=== PATIENT | male | born 1980 | race Caucasian/White ===

== ENCOUNTER → 2024-02-03 15:49 | Outpatient (REF) | payer OTHER, SELFPAY | LOC: HWRCS 15:49 | PROVIDERS: ATTENDING PHYSICIAN Student in an Organized Health Care Education/Training Program; FAMILY PHYSICIAN Nurse Practitioner Family | DX: I72.3 Aneurysm of iliac artery (principal); I48.0 Paroxysmal atrial fibrillation; R07.89 Other chest pain | CPT/HCPCS: 93306 ==

== ENCOUNTER 2024-06-03 05:59 | Day surgery (SDC) | payer OTHER, SELFPAY ==
--- NOTE | 2024-05-28 11:24 | HPS.HSE ---
Family Physician
-
Family Physician: INTERVIEWE UNKNOWN - PT NOT
Chief Complaint
-
Persistent atrial fibrillation.
History of Present Illness
The patient is a 44-year-old male presenting today for persistent atrial fibrillation. He was initially diagnosed with paroxysmal atrial fibrillation in 2019 and spontaneously came out of atrial fibrillation into normal sinus rhythm.
Unfortunately, he has had persistent atrial fibrillation since December 2023 with associated symptoms of worsening fatigue, lightheadedness, decreased exercise tolerance, diaphoresis, and dyspnea with exertion. He is not on current pharmacological
therapy. His CHADS-VASc score is 1 (vascular disease); however, he is agreeable to short term anticoagulation therapy with Eliquis given the severity of his symptoms. He notes that his atrial fibrillation symptoms greatly interfere with his
activities of daily living and are overall impacting his quality of life. He is interested in pursuing pulsed field atrial fibrillation ablation for further arrhythmia management. He denies any current complaints today such as chest pain and
shortness of breath at rest, palpitations, nausea, vomiting, diarrhea, dizziness, cough, sore throat, or fever.
Medical History
Past Medical History
Past Medical History: Reports Other
Additional Past Medical History:
1. Persistent atrial fibrillation, oral anticoagulation with Eliquis.
2. PACs and PVCs.
3. Hyperlipidemia.
4. Left iliac artery aneurysm, 1.8 cm.
5. GERD.
6. Diverticulitis 2019.
7. Hepatic steatosis.
8. Migraines.
9. Obesity, BMI 30.3.
Past Surgical History: Reports Other (Left shoulder rotator cuff repair, subacromial decompression. )
Social History
Tobacco: Non-smoker
Alcohol: None
Living: Alone (in a 2 story home. He reports he will be staying at his girlfriend's house post-ablation. )
Family History
Family History: Not pertinent
Allergies / Home Medications
Allergy/Medication List:
Home medications: Eliquis 5 mg p.o. twice a day.
Allergies: Augmentin.
Review of Systems
-
A 12 point ROS was completed and negative except as noted: Yes
Physical Exam
Vital Signs
Blood pressure 123/75. Heart rate 85. Respirations 18. Pulse ox 97% on room air.
Height 5 feet, 10 inches. Weight 95.8 kg. BMI 30.3.
Physical Exam
General: Well Developed, Well Nourished and No Apparent Distress
HEENT: NormoCephalic, Moist mucous membranes, Atraumatic and PERRLA
Respiratory: Clear
Cardiac: Irregular Rhythm
GI: Soft, Non Tender, Non Distended and Other (Obese. )
Musculoskeletal: Normal Gait & Station
Skin: Warm and Dry
Neuro: AO x 3 and Nonfocal/grossly intact
Laboratory Results
-
DIAGNOSTIC STUDIES as of 05/28/2024: White blood cell count 8.3. Hemoglobin 18.2. Platelet count 263,000. Sodium 142. Potassium 4.3. BUN 17. Creatinine 0.9. Glucose 119. Calcium 9.4. AST 31.ALT 29. Albumin 4.5. Type and screen A positive.
EKG 05/28/2024: Atrial fibrillation with rapid ventricular response.
Echocardiogram 02/03/2024: Normal left ventricular size, wall thickness, and systolic function. No regional wall motion abnormalities are seen. Left ventricular ejection fraction is 55-60% by Quintanilla's method of discs. Normal diastolic function.
Normal right ventricular size and function. Normal atria. No significant valve abnormalities.No evidence of pulmonary hypertension. No significant change since the prior study of 04/07/2020.
Impression/Plan
-
IMPRESSION/PLAN:
1. Persistent atrial fibrillation: The patient is in need of a pulsed field atrial fibrillation ablation with Dr. Anant Deleon on 06/03/2024. The benefits and risks of the procedure have been explained to the patient. The patient understands these
risks and wishes to proceed. He is aware to continue his home Eliquis uninterrupted prior to his upcoming ablation.
[2024-05-28 13:30] VITALS: BMI 30.3
[2024-05-28 13:55] LABS: % Basophils 1.1 % (0-2); % Eosinophils 2.2 % (0-6); % Immature Granulocytes 0.4 % (0-0.5); % Lymphocytes 36.8 % (20.5-51.1); % Monocytes 6.2 % (1.7-9.3); % Neutrophils 53.3 % (42.2-75.2); Absolute Basophils 0.1 10^3/uL (0-0.2); Absolute Eosinophils 0.2 10^3/uL (0-0.7); Absolute Monocytes 0.5 10^3/uL (0.1-0.6); Absolute Neutrophils 4.4 10^3/uL (1.4-6.5); Hematocrit 51.8 % (39.0-52.0); Hemoglobin 18.2 g/dL (13.0-18.0); Mean Corp Hgb Conc. 35.1 g/dL (33.0-37.0); Mean Corpuscular Hgb 30.4 pg (27.0-31.0); Mean Corpuscular Volume 86.5 fL (80.0-94.0); Mean Platelet Volume 10.1 fL (7.4-10.4); Nucleated Red Blood Cells % 0 % (-); Platelet Count 263 10^3/uL (130-400); Red Blood Cell Count 5.99 10^6/uL (4.70-6.10); Red Cell Dist. Width 13.7 % (11.5-14.5); White Blood Cell Count 8.3 10^3/uL (4.8-10.8)
[2024-05-28 14:29] LABS: ALT (SGPT) 29 U/L (0-50); Albumin 4.5 g/dl (3.5-5.0); Alkaline Phosphatase 64 U/L (38-126); Blood Urea Nitrogen 17 mg/dl (9-20); Calcium 9.4 mg/dl (8.4-10.2); Carbon Dioxide 25 mmol/L (22-30); Chloride 106 mmol/L (98-107); Estimated Creatinine Clearance 119 ml/min; Glucose 119 mg/dl (70-99); Potassium 4.3 mmol/L (3.5-5.1); Sodium 142 mmol/L (135-145); Total Bilirubin 0.6 mg/dl (0.2-1.3); eGFR > 60.00
[2024-05-28 16:19] LABS: AST (SGOT) 31 U/L (17-59)
[2024-06-03] VITALS (9 sets, daily range): BP systolic 105–119; BP diastolic 72–91; BMI 29.8
[2024-06-03 08:45] LABS: ACT-LR - POC 345 Seconds (116-155)
[2024-06-03 09:20] LABS: ACT-LR - POC 332 Seconds (116-155)
--- NOTE | 2024-06-03 09:41 | ITS.CL.ABL ---
Premium Card Cancellation Clerk - Ablation
Ablation
Procedure Report:
AFIB ablation:
Mr. Tijerina is a very pleasant 44 yr old gentleman with symptomatic paroxysmal AF and atrial tachycardia presented today to the EP lab for atrial fibrillation/SVT ablation.
Date of the Procedure:
06/03/2024
Indications:
Paroxysmal atrial fibrillation
Pre-Operative Diagnosis:
Paroxysmal atrial fibrillation
Post-Operative Diagnosis:
Paroxysmal atrial fibrillation
Procedure Performed:
Atrial fibrillation ablation with Pulsed-Field approach for pulmonary vein isolation
Performing Physician:
Anant Deleon MD
Assistants:
EP staff
Anesthesia:
See anesthesia records
Detailed Description of the Procedure:
Written informed consent was obtained from the patient after a full explanation of the risks and benefits of the procedure including the risks of sedation and anesthesia.
The patient was brought to the electrophysiology laboratory in stable condition in fasting state. Continuous electrocardiographic and hemodynamic monitoring was initiated.
The initial rhythm was atrial fibrillation rhythm.
The procedure site was meticulously prepared with surgical scrub and allowed to dry with no pooling. Sterile draping was applied to cover the procedure site. The image intensifier was draped with sterile bag and positioned over the patient. After
infusion of local anesthetic, vascular access was obtained under ultrasound guidance and sheaths were placed over guide wire as detailed below.
The vascular ultrasound was stored in patient chart.
Sheath and Catheter Placement:
The following catheters / sheaths were placed
Sheaths:
15Fr steerable sheath (FlexCath Cross�, INTEX Programtronic) in right femoral vein in right femoral vein
9Fr in right femoral vein
7Fr in right femoral vein
Catheters:
Carto Pentaray mapping catheter � at locations of RA, LA
PulseSelect� PFA catheter
ICE catheter -AcuNav - at locations of RA, SVC, and RV.
Decapolar Bard catheter in RA and CS
Heparin was given after the access.
Intracardiac ECHO:
An 8-Bhutanese AcuNav intracardiac ECHO (ICE) probe was advanced through the 9-Bhutanese sheath in the right femoral vein into the right atrium under fluoroscopic and ICE ultrasound image guidance and a baseline ECHO study was performed. The left atrial
size was mildly dilated. There was moderate tricuspid regurgitation. The aortic valve was grossly normal. There was normal left ventricular systolic functions. There is no pericardial effusion. All the four veins were identified and has flow
identified.
During the procedure, ICE was used for monitoring of complications, guidance of trans-septal puncture, monitor the catheter position and tracking ablation lesions. No change in the pericardial space noted throughout the procedure.
Trans-septal Puncture:
Heparin was initiated and infused to maintain appropriate ACT. A J-tipped guidewire was advanced through the 8-Bhutanese sheath in the right femoral vein into the superior vena cava under fluoroscopic and ICE guidance. The 8-Bhutanese sheath was exchanged
for a FlexCath Cross sheath which was advanced into the superior vena cava. An AcZumbl transseptal access system was utilized to perform the trans-septal puncture. The apparatus was withdrawn until it was in contact with the fossa ovalis. The
position was adjusted based on fluoroscopy and ultrasound images from ICE. Under fluoroscopic, hemodynamic and ICE ultrasound guidance, left atrium was cannulated by advancing the needle. Once atrial septum was cannulated, the needle was pulled back
and a guide wire was advanced through the needle into the left atrium. The guide wire was advanced into the left superior pulmonary vein. Both the sheath and the dilator was advanced into the left atrium. The dilator with the needle was withdrawn.
Blood was aspirated from the FlexCath cross sheath and arterial blood confirmed. The sheath was flushed. Saline injection noted into the left atrium on ICE. The mapping catheter was advanced in the FlexCath sheath into the left pulmonary vein. Left
atrial pressure was measured.
3D Electroanatomic Mapping:
Using the Pentaray catheter advanced through sheath into the left atrium, an electroanatomic map (EAM) of the left atrium was created using Joosy mapping system. The map was used for localization of catheter position and tacking of
ablation lesions. The EAM of the left atrium showed 4 pulmonary veins with two left sided and two right sided veins electrically connected to the body the LA. The EAM showed no significant scar in the left atrium.
The LA was normal in size.
Following the EAM, preparation were made for ablation. Glycopyrrolate 0.2 mg was given prior to the ablation to prevent vasovagal response.
Ablation:
Ablation # 1: Pulmonary vein Isolation:
Using [employer]� pulsed field ablation system, pulmonary vein isolation was achieved. First the ablation catheter was placed in the LSPV and ostial ablation lesions were performed in a counter clock danielle approach all around the PV ostium
circumferentially. Then the catheter was placed on the antral location and multiple ablation lesions were placed circumferentially on the antrum of the vein.
In the similar fashion, the LIPV were isolated.
Then the catheter was moved to right sided veins. The ostial and antral ablations were placed as noted above to the RSPV and RIPV.
Patient came out of the AF to sinus rhythm with completion of PVI on the RIPV.
Post ablation Electroanatomic mapping:
Once the sinus rhythm achieved, the LA was mapped with Pentaray in detail.
The veins were isolated and normal electrograms noted in the posterior wall. Excellent WACA ablation noted with excellent demarcation of LA myocardium and isolated antral tissue.
EPS and Confirmation of the PVI and bidirectional block:
Following achievement of entrance block at the pulmonary veins, pacing from the HD catheter in each of the four veins at 10 milliamps for 2 milliseconds showed entrance and exit block. All PVI were rechecked at the end of the case and remained
isolated. Entrance and exit block were demonstrated in all veins.
Procedure End
ICE study was done again that showed no epicardial accumulation. No complications noted.
Following the completion of the EP study, catheters were removed. Protamine 30 mg was given at the end of the procedure and ACT was checked repeatedly. The sheaths were removed and hemostasis achieved with manual compression after acceptable ACT is
achieved.
Left atrial Pressure:
Pre-ablation: Mean LA pressure was 11mmHg
Post-ablation: Mean LA pressure was 15mmHg
Post-ablation: Mean RA pressure was 11mmHg
Estimated Blood loss:
<10 cc
Specimens Removed:
None.
Implants / Devices:
None
Urine output:
None
Packs / Drains/ Tubes:
None
Instrument / Sponge Count Correct:
Yes
Complications of the Procedure:
None
Condition of Patient at Time of Transfer:
Hemodynamically stable with no neurological or vascular compromise.
Summary:
Successful atrial fibrillation ablation with Pulsed Field approach for pulmonary vein isolation
Figures from the Procedure:
Figure 1: The electroanatomic mapping (EAM) of the left atrium with bipolar voltage (purple indicates normal electrical activity with red as no myocardial muscle electric activity indicating a line of block or scar.
[2024-06-03] MEDS: TYLENOL 650 MG PO (10:32)
[2024-06-03] MEDS: ANESTHETIC LOZENGE 1 LOZENGE PO (10:33)
--- NOTE | 2024-06-03 14:12 | W.PN.UPDATE ---
Update Note
Progress Note Update
44 yo WM s/p PVI (same day). He denies cp, sob, mild sore throat and headache relief with tylenol, voiding, EKG SR, R fem site VASCADE and F08 c/d/i, soft. He will resume Eliquis tonight at home. Activity restrictions reviewed. He will f/u [employer] cbc in
2 weeks. He is for d/c home after 130pm
== END 2024-06-07 13:38 | disposition home or self-care (01) ==
LOC: CATH 05:59
PROVIDERS: ATTENDING PHYSICIAN Internal Medicine Cardiovascular Disease; FAMILY PHYSICIAN Nurse Practitioner Family; OTHER PHYSICIAN Student in an Organized Health Care Education/Training Program
DX: I48.19 Other persistent atrial fibrillation (principal); R53.83 Other fatigue; R06.00 Dyspnea, unspecified; R42 Dizziness and giddiness; Z79.01 Long term (current) use of anticoagulants; E78.5 Hyperlipidemia, unspecified; I72.3 Aneurysm of iliac artery; K21.9 Gastro-esophageal reflux disease without esophagitis; K57.92 Diverticulitis of intestine, part unspecified, without perforation or abscess without bleeding; K76.0 Fatty (change of) liver, not elsewhere classified; G43.909 Migraine, unspecified, not intractable, without status migrainosus; E66.9 Obesity, unspecified; Z68.30 Body mass index [BMI] 30.0-30.9, adult; Z88.0 Allergy status to penicillin; Z88.1 Allergy status to other antibiotic agents
CPT/HCPCS: C1732; C1894; C1769; C1892; C1759; C1733; C1766; 36415; 76937; 80053; 85025; 85347; 86850; 86900; 86901; 93005; 93656; C1730; C1760